=== PATIENT | male | born 1940 | race Two or more races ===

== ENCOUNTER 2021-04-14 15:39 | Inpatient (IN) | payer OTHER ==
[~2021-04-14] VITALS: Ht 185.4 cm; Wt 53.5 kg
[2021-04-14 16:54] LABS: Basophils # (auto) 0 10 ^3/uL (0-0.2); Basophils % (auto) 0.3 % (0.0-2.0); Eosinophils # (auto) 0 10 ^3/uL (0-0.8); Hematocrit 46.5 % (41.0-53.0); Hemoglobin 15.3 g/dL (13.5-17.5); Lymphocytes # (auto) 1.5 10 ^3/uL (0.4-5.4); Lymphocytes % (auto) 20.9 % (10.0-50.0); Mean Corpuscular Hemoglobin 28.1 pg (28.0-32.0); Mean Corpuscular Hgb Conc. 32.9 g/dL (32.0-36.0); Mean Corpuscular Volume 85.4 fL (80.0-100.0); Monocytes # (auto) 0.5 10 ^3/uL (0-1.3); Monocytes % (auto) 6.7 % (0.0-12.0); Neutrophils % (auto) 72.1 % (37.0-80.0); Nucleated Red Blood Cells % 0.2 %; Red Blood Cells 5.44 10^6/uL (4.5-5.90); Red Cell Distribution Width 13.6 % (11.8-14.3)
[2021-04-14 17:17] LABS: INR 1.16 (0.9-1.15); Partial Thromboplastin Time 33.3 sec (23.6-33.0)
[2021-04-14 17:20] LABS: Alanine Aminotransferase 32 U/L (16-61); Alkaline Phosphatase 54 U/L (45-117); Anion Gap 5 (5-15); Aspartate Aminotransferase 58 U/L (15-37); Blood Urea Nitrogen 23 mg/dL (7-18); Carbon Dioxide 23 mmol/L (21-32); Chloride 105 mmol/L (98-107); GFR African American 92 mL/min; GFR Non-African American 76 mL/min; Glucose 118 mg/dL (74-106); Potassium 4.4 mmol/L (3.5-5.1); Sodium 133 mmol/L (136-145)
[2021-04-14 17:21] LABS: Bilirubin, Total 1.1 mg/dL (0.2-1.0); Calcium 8.8 mg/dL (8.5-10.1); Total Protein 8.4 g/dL (6.4-8.2)
[2021-04-14] MEDS ORDERED: ENOXAPARIN SOD 100 MG/1 ML SYRINGE SC ONE (19:45)
[2021-04-14] MEDS ORDERED: ASPirin 325 MG TAB PO ONE (19:45)
[2021-04-14] MEDS ORDERED: NITROGLYCERIN 0.4 MG SL TAB SL PRN ×3 (21:15→21:30)
[2021-04-14] MEDS ORDERED: MORPHINE SULFATE INJECTION 2 MG/ML SYRG IV PRN ×4 (21:15→21:30)
[2021-04-14] MEDS ORDERED: hydrALAZINE HCL 20 MG/ML VL IV ONE (21:15)
[2021-04-14] MEDS ORDERED: METOPROLOL TARTRATE 25 MG TAB PO STA (21:25)
[2021-04-14] MEDS ORDERED: CLOPIDOGREL 300 MG TAB PO ONE (21:30)
[2021-04-14] MEDS ORDERED: ATORVASTATIN 20 MG TAB PO ONE (21:30)
[2021-04-14] MEDS ORDERED: SODIUM CHLORIDE 0.9% 1,000 ML IV SCH (21:30)
[2021-04-14] MEDS ORDERED: ONDANSETRON HCL 4 MG/2 ML VIAL IV PRN ×2 (21:30)
[2021-04-14] MEDS: ENOXAPARIN SOD 80 MG/0.8ML SYRINGE SC SCH (22:57)
[2021-04-14] MEDS ORDERED: LABETALOL HCL 5 MG/ML 4ML SYRINGE IV ONE (23:00)
[2021-04-14] MEDS: ATORVASTATIN 20 MG TAB PO SCH (23:11)
[2021-04-15 02:03] LABS: Urine Bacteria FEW /hpf (None Seen); Urine Blood 2+ /uL (Negative); Urine Hyaline Cast FEW /lpf (0 - 2); Urine Mucus FEW (None Seen); Urine Specific Gravity 1.016 (1.001-1.035); Urine WBC 185 /hpf (0 - 3); Urine WBC Clumps PRESENT /hpf (None Seen)
[2021-04-15] MEDS ORDERED: LABETALOL HCL 5 MG/ML ML 20ML VIAL IV ONE (04:00)
[2021-04-15 05:30] VITALS: BP_SYST 157; BP_SYST 158; BP_DIAS 75; BP_DIAS 84
[2021-04-15 08:07] LABS: Basophils # (auto) 0 10 ^3/uL (0-0.2); Basophils % (auto) 0.6 % (0.0-2.0); Eosinophils # (auto) 0.2 10 ^3/uL (0-0.8); Eosinophils % (auto) 3.1 % (0.0-7.0); Hematocrit 39.6 % (41.0-53.0); Hemoglobin 13.2 g/dL (13.5-17.5); Lymphocytes % (auto) 31.6 % (10.0-50.0); Mean Corpuscular Hemoglobin 32.4 pg (28.0-32.0); Mean Corpuscular Hgb Conc. 33.3 g/dL (32.0-36.0); Mean Corpuscular Volume 97.2 fL (80.0-100.0); Monocytes # (auto) 0.7 10 ^3/uL (0-1.3); Monocytes % (auto) 10.9 % (0.0-12.0); Neutrophils # (auto) 3.4 10 ^3/uL (1.6-8.6); Neutrophils % (auto) 53.8 % (37.0-80.0); Nucleated Red Blood Cells % 0.1 %; Red Blood Cells 4.08 10^6/uL (4.5-5.90); Red Cell Distribution Width 13.7 % (11.8-14.3); White Blood Cell 6.4 10^3/uL (4.4-10.8)
[2021-04-15 09:00] VITALS: BP 179/92
[2021-04-15] MEDS: ASPirin 81 mg TAB PO SCH (09:14)
[2021-04-15] MEDS: ENOXAPARIN SOD 80 MG/0.8ML SYRINGE SC SCH ×2 (09:15→22:21)
[2021-04-15] MEDS: CLOPIDOGREL BISULFATE 75 MG TAB PO SCH (09:15)
[2021-04-15] MEDS: LISINOPRIL 10 MG TAB PO SCH (09:16)
[2021-04-15] MEDS ORDERED: AMLO-483 PO (09:56)
[2021-04-15] MEDS ORDERED: ASPI-543 PO (09:56)
[2021-04-15 10:02] LABS: Alanine Aminotransferase 31 U/L (16-61); Albumin 3.3 g/dL (3.4-5.0); Alkaline Phosphatase 56 U/L (45-117); Anion Gap 6 (5-15); Aspartate Aminotransferase 36 U/L (15-37); BUN/Creatinine Ratio 16.9; Blood Urea Nitrogen 26 mg/dL (7-18); Calcium 8.3 mg/dL (8.5-10.1); Carbon Dioxide 22 mmol/L (21-32); Chloride 115 mmol/L (98-107); Cholesterol 119 mg/dL (< 200); GFR African American 56 mL/min; GFR Non-African American 46 mL/min; Glucose 83 mg/dL (74-106); HDL Cholesterol 26 mg/dL (40-59); LDL Cholesterol 79 mg/dL (< 100); Magnesium 2.2 mg/dL (1.6-2.6); Potassium 4.1 mmol/L (3.5-5.1); Sodium 143 mmol/L (136-145); Total Protein 6.1 g/dL (6.4-8.2); Triglycerides 98 mg/dL (< 150)
[2021-04-15] MEDS ORDERED: DexAMETHasone SOD PHOS 10MG/1ML VIAL INJ IV ONE (10:05)
[2021-04-15] MEDS ORDERED: ASCORBIC ACID 1,000 MG TAB PO ONE (10:05)
[2021-04-15] MEDS ORDERED: CHOLECALCIFEROL (VITD3) 2,000 UNIT CAP/TAB PO ONE (10:05)
[2021-04-15] MEDS ORDERED: FUROSEMIDE 20 MG/2 ML VIAL IV ONE (10:15)
[2021-04-15] MEDS ORDERED: DEXTROSE (50%) 50ML SYRG IV PRN (10:15)
[2021-04-15] MEDS ORDERED: REMDESIVIR PER PHARMACY 0 ML IV SCH (10:15)
[2021-04-15] MEDS ORDERED: hydrALAZINE HCL 20 MG/ML VL IV PRN (10:15)
[2021-04-15] MEDS: SODIUM CHLORIDE 0.9% 1,000 ML IV SCH (11:00)
[2021-04-15] MEDS: METOPROLOL TARTRATE 25 MG TAB PO SCH ×2 (11:30→22:22)
[2021-04-15] MEDS: InsuLIN REG 1unit/0.01ml Soln (100units/ml) SC SCH ×2 (12:00→18:09)
[2021-04-15] MEDS: ACCU-CHEK COMFORT CURVE STRIP VI SCH ×2 (12:15→18:10)
[2021-04-15 12:43] LABS: Lactic Acid w/Reflex 2.7 mmol/L (0.4-2.0)
[2021-04-15 12:50] VITALS: BP 138/63
[2021-04-15 13:00] VITALS: BP 138/63
[2021-04-15] MEDS ORDERED: REMDESIVIR 200 MG in NS 210ml LOADING DOSE ADULT IV ONE (15:00)
[2021-04-15 16:59] VITALS: BP 128/77
[2021-04-15] MEDS: BUDESONIDE (INHALATION) 180 MCG IH IN SCH (20:01)
[2021-04-15] MEDS: ALBUTEROL SULF HFA 90MCG INH 200DOSE IN PRN (20:01)
[2021-04-15 22:00] VITALS: BP 128/70
[2021-04-15] MEDS: ATORVASTATIN 20 MG TAB PO SCH (22:20)
[2021-04-15] MEDS: DOXYCYCLINE 100MG/250ML 250 ML IV SCH (22:21)
[2021-04-16 05:00] VITALS: BP 126/55
[2021-04-16] MEDS: SODIUM CHLORIDE 0.9% 1,000 ML IV SCH (06:36)
[2021-04-16 06:41] LABS: Albumin 2.4 g/dL (3.4-5.0); Calcium 8.3 mg/dL (8.5-10.1); Potassium 3.2 mmol/L (3.5-5.1)
[2021-04-16 06:44] LABS: BUN/Creatinine Ratio 38.8; Bilirubin, Total 0.9 mg/dL (0.2-1.0); Total Protein 6.9 g/dL (6.4-8.2)
[2021-04-16] MEDS: BUDESONIDE (INHALATION) 180 MCG IH IN SCH ×2 (07:37→20:16)
[2021-04-16 09:00] VITALS: BP 114/56
[2021-04-16] MEDS: DOXYCYCLINE 100MG/250ML 250 ML IV SCH ×2 (09:44→22:15)
[2021-04-16] MEDS: DexAMETHasone SOD PHOS 10MG/1ML VIAL INJ IV SCH (09:44)
[2021-04-16] MEDS: METOPROLOL TARTRATE 25 MG TAB PO SCH ×2 (09:45→22:18)
[2021-04-16] MEDS: ASCORBIC ACID 1,000 MG TAB PO SCH (09:45)
[2021-04-16] MEDS: CHOLECALCIFEROL (VITD3) 2,000 UNIT CAP/TAB PO SCH (09:45)
[2021-04-16] MEDS: CLOPIDOGREL BISULFATE 75 MG TAB PO SCH (09:45)
[2021-04-16] MEDS: ASPirin 81 mg TAB PO SCH (09:45)
[2021-04-16] MEDS: ENOXAPARIN SOD 80 MG/0.8ML SYRINGE SC SCH (09:46)
[2021-04-16] MEDS: LISINOPRIL 10 MG TAB PO SCH (09:46)
[2021-04-16] MEDS: REMDESIVIR 100mg 100 MG in SODIUM CHL 0.9% 230 ML IV SCH (15:15)
[2021-04-16] MEDS ORDERED: FUROSEMIDE 20 MG/2 ML VIAL IV ONE (15:15)
[2021-04-16] MEDS ORDERED: ERGOCALCIFEROL 50,000 UNIT(1.25MG) CAP PO ONE (15:15)
[2021-04-16] MEDS ORDERED: POTASSIUM EFFERVESENT TAB 25 MEQ PO ONE (15:15)
[2021-04-16 17:00] VITALS: BP 143/85
[2021-04-16] MEDS: ALBUTEROL SULF HFA 90MCG INH 200DOSE IN PRN (20:17)
[2021-04-16 22:00] VITALS: BP 101/56
[2021-04-16] MEDS: ATORVASTATIN 20 MG TAB PO SCH (22:15)
[2021-04-16] MEDS: ENOXAPARIN SOD 40 MG/0.4 ML SYRINGE SC SCH (22:18)
[2021-04-17 05:00] VITALS: BP 139/72
[2021-04-17 07:01] LABS: Basophils # (auto) 0 10 ^3/uL (0-0.2); Basophils % (auto) 0.1 % (0.0-2.0); Eosinophils # (auto) 0 10 ^3/uL (0-0.8); Hematocrit 42.7 % (41.0-53.0); Lymphocytes # (auto) 1.2 10 ^3/uL (0.4-5.4); Lymphocytes % (auto) 11.9 % (10.0-50.0); Mean Corpuscular Hemoglobin 27.4 pg (28.0-32.0); Mean Corpuscular Hgb Conc. 32.6 g/dL (32.0-36.0); Mean Corpuscular Volume 83.9 fL (80.0-100.0); Monocytes # (auto) 0.3 10 ^3/uL (0-1.3); Monocytes % (auto) 3.3 % (0.0-12.0); Neutrophils # (auto) 8.3 10 ^3/uL (1.6-8.6); Neutrophils % (auto) 84.7 % (37.0-80.0); Nucleated Red Blood Cells % 0.1 %; Red Cell Distribution Width 13.4 % (11.8-14.3); White Blood Cell 9.8 10^3/uL (4.4-10.8)
[2021-04-17] MEDS: BUDESONIDE (INHALATION) 180 MCG IH IN SCH ×2 (07:11→19:34)
[2021-04-17 07:18] LABS: Albumin 2.5 g/dL (3.4-5.0); BUN/Creatinine Ratio 47.8; Calcium 8.3 mg/dL (8.5-10.1); Potassium 3.3 mmol/L (3.5-5.1)
[2021-04-17 07:21] LABS: INR 1.27 (0.9-1.15)
[2021-04-17 07:23] LABS: Bilirubin, Total 0.7 mg/dL (0.2-1.0); Total Protein 6.7 g/dL (6.4-8.2)
[2021-04-17 08:00] VITALS: BP 124/59
[2021-04-17] MEDS ORDERED: FUROSEMIDE 20 MG/2 ML VIAL IV SCH (10:00)
[2021-04-17] MEDS: ASPirin 81 mg TAB PO SCH (10:27)
[2021-04-17] MEDS: DexAMETHasone SOD PHOS 10MG/1ML VIAL INJ IV SCH (10:27)
[2021-04-17] MEDS: METOPROLOL TARTRATE 25 MG TAB PO SCH ×2 (10:27→21:48)
[2021-04-17] MEDS: CLOPIDOGREL BISULFATE 75 MG TAB PO SCH (10:28)
[2021-04-17] MEDS: ASCORBIC ACID 1,000 MG TAB PO SCH (10:28)
[2021-04-17] MEDS: ENOXAPARIN SOD 40 MG/0.4 ML SYRINGE SC SCH ×2 (10:28→21:49)
[2021-04-17] MEDS: CHOLECALCIFEROL (VITD3) 2,000 UNIT CAP/TAB PO SCH (10:28)
[2021-04-17] MEDS: DOXYCYCLINE 100MG/250ML 250 ML IV SCH ×2 (11:10→21:47)
[2021-04-17 12:00] VITALS: BP 154/66
[2021-04-17] MEDS: ENSURE CLEAR Apple 8oz Carton PO SCH ×2 (12:30→18:30)
[2021-04-17] MEDS ORDERED: POTASSIUM EFFERVESENT TAB 25 MEQ PO ONE (12:45)
[2021-04-17] MEDS: REMDESIVIR 100mg 100 MG in SODIUM CHL 0.9% 230 ML IV SCH (15:21)
[2021-04-17 16:00] VITALS: BP 145/73
[2021-04-17] MEDS: ATORVASTATIN 20 MG TAB PO SCH (21:48)
[2021-04-17] MEDS: ACETAMINOPHEN 325 MG TAB PO PRN (21:50)
[2021-04-17 22:00] VITALS: BP 125/71
[2021-04-17] MEDS: ALBUTEROL SULF HFA 90MCG INH 200DOSE IN PRN (22:47)
[2021-04-18 05:00] VITALS: BP 140/62
[2021-04-18] MEDS: ALBUTEROL SULF HFA 90MCG INH 200DOSE IN PRN ×2 (06:56→19:34)
[2021-04-18] MEDS: BUDESONIDE (INHALATION) 180 MCG IH IN SCH ×2 (06:57→19:34)
[2021-04-18 08:00] VITALS: BP 124/68
[2021-04-18 09:00] VITALS: BP 135/72
[2021-04-18] MEDS: ASPirin 81 mg TAB PO SCH (09:18)
[2021-04-18] MEDS: ENSURE CLEAR Apple 8oz Carton PO SCH ×2 (09:18→12:00)
[2021-04-18] MEDS: DexAMETHasone SOD PHOS 10MG/1ML VIAL INJ IV SCH (09:18)
[2021-04-18] MEDS: DOXYCYCLINE 100MG/250ML 250 ML IV SCH ×2 (09:18→21:29)
[2021-04-18] MEDS: CHOLECALCIFEROL (VITD3) 2,000 UNIT CAP/TAB PO SCH (09:19)
[2021-04-18] MEDS: ASCORBIC ACID 1,000 MG TAB PO SCH (09:19)
[2021-04-18] MEDS: ENOXAPARIN SOD 40 MG/0.4 ML SYRINGE SC SCH ×2 (09:19→21:31)
[2021-04-18] MEDS: METOPROLOL TARTRATE 25 MG TAB PO SCH ×2 (09:19→21:30)
[2021-04-18 13:00] VITALS: BP 134/75
[2021-04-18] MEDS: REMDESIVIR 100mg 100 MG in SODIUM CHL 0.9% 230 ML IV SCH (16:36)
[2021-04-18 17:00] VITALS: BP 140/79
[2021-04-18] MEDS: ACETAMINOPHEN 325 MG TAB PO PRN (19:52)
[2021-04-18] MEDS: ATORVASTATIN 20 MG TAB PO SCH (21:30)
[2021-04-18 22:00] VITALS: BP 146/58
[2021-04-19] VITALS (7 sets, daily range): BP systolic 144–156; BP diastolic 53–90
[2021-04-19] MEDS: ENSURE CLEAR Apple 8oz Carton PO SCH ×4 (09:28→18:00)
[2021-04-19] MEDS: DexAMETHasone SOD PHOS 10MG/1ML VIAL INJ IV SCH (09:29)
[2021-04-19] MEDS: ASPirin 81 mg TAB PO SCH (09:29)
[2021-04-19] MEDS: DOXYCYCLINE 100MG/250ML 250 ML IV SCH ×2 (09:29→22:06)
[2021-04-19] MEDS: CHOLECALCIFEROL (VITD3) 2,000 UNIT CAP/TAB PO SCH (09:30)
[2021-04-19] MEDS: ASCORBIC ACID 1,000 MG TAB PO SCH (09:30)
[2021-04-19] MEDS: ENOXAPARIN SOD 40 MG/0.4 ML SYRINGE SC SCH ×2 (09:30→22:08)
[2021-04-19] MEDS: METOPROLOL TARTRATE 25 MG TAB PO SCH ×2 (09:31→22:07)
[2021-04-19 13:30] LABS: Basophils # (auto) 0.3 10 ^3/uL (0-0.2); Basophils % (auto) 4.9 % (0.0-2.0); Eosinophils # (auto) 0 10 ^3/uL (0-0.8); Eosinophils % (auto) 0.4 % (0.0-7.0); Hematocrit 37.5 % (41.0-53.0); Hemoglobin 12.6 g/dL (13.5-17.5); Lymphocytes # (auto) 0.6 10 ^3/uL (0.4-5.4); Mean Corpuscular Hgb Conc. 33.7 g/dL (32.0-36.0); Monocytes # (auto) 0.1 10 ^3/uL (0-1.3); Monocytes % (auto) 1.9 % (0.0-12.0); Neutrophils # (auto) 4.8 10 ^3/uL (1.6-8.6); Neutrophils % (auto) 82.8 % (37.0-80.0); Nucleated Red Blood Cells % 0.1 %; Red Blood Cells 4.22 10^6/uL (4.5-5.90); Red Cell Distribution Width 13.4 % (11.8-14.3); White Blood Cell 5.8 10^3/uL (4.4-10.8)
[2021-04-19 13:49] LABS: Albumin 2.4 g/dL (3.4-5.0); Calcium 8.6 mg/dL (8.5-10.1)
[2021-04-19 13:54] LABS: BUN/Creatinine Ratio 30.1; Bilirubin, Total 0.5 mg/dL (0.2-1.0); Potassium 3.4 mmol/L (3.5-5.1); Total Protein 6.1 g/dL (6.4-8.2)
[2021-04-19] MEDS: REMDESIVIR 100mg 100 MG in SODIUM CHL 0.9% 230 ML IV SCH (14:49)
[2021-04-19] MEDS: ALBUTEROL SULF HFA 90MCG INH 200DOSE IN PRN ×2 (15:32→20:56)
[2021-04-19] MEDS: BUDESONIDE (INHALATION) 180 MCG IH IN SCH ×2 (15:32→20:56)
[2021-04-19] MEDS: ATORVASTATIN 20 MG TAB PO SCH (22:07)
[2021-04-20 05:00] VITALS: BP 160/67
[2021-04-20] MEDS ORDERED: hydrALAZINE HCL 20 MG/ML VL ONE (05:23)
[2021-04-20] MEDS: ALBUTEROL SULF HFA 90MCG INH 200DOSE IN PRN ×2 (07:45→19:25)
[2021-04-20] MEDS: BUDESONIDE (INHALATION) 180 MCG IH IN SCH ×2 (07:45→19:25)
[2021-04-20 09:00] VITALS: BP 149/76
[2021-04-20] MEDS: DexAMETHasone SOD PHOS 10MG/1ML VIAL INJ IV SCH (09:21)
[2021-04-20] MEDS: ENOXAPARIN SOD 40 MG/0.4 ML SYRINGE SC SCH ×2 (09:21→21:38)
[2021-04-20] MEDS: DOXYCYCLINE 100MG/250ML 250 ML IV SCH (09:21)
[2021-04-20] MEDS: ASCORBIC ACID 1,000 MG TAB PO SCH (09:22)
[2021-04-20] MEDS: METOPROLOL TARTRATE 25 MG TAB PO SCH ×2 (09:22→21:38)
[2021-04-20] MEDS: ASPirin 81 mg TAB PO SCH (09:22)
[2021-04-20] MEDS: CHOLECALCIFEROL (VITD3) 2,000 UNIT CAP/TAB PO SCH (09:22)
[2021-04-20] MEDS: ENSURE CLEAR Apple 8oz Carton PO SCH ×3 (09:23→18:00)
[2021-04-20 11:01] LABS: Basophils # (auto) 0 10 ^3/uL (0-0.2); Basophils % (auto) 0.5 % (0.0-2.0); Eosinophils # (auto) 0 10 ^3/uL (0-0.8); Eosinophils % (auto) 0.3 % (0.0-7.0); Hematocrit 36.4 % (41.0-53.0); Hemoglobin 12.5 g/dL (13.5-17.5); Lymphocytes # (auto) 1.3 10 ^3/uL (0.4-5.4); Lymphocytes % (auto) 23.2 % (10.0-50.0); Mean Corpuscular Hemoglobin 32.4 pg (28.0-32.0); Mean Corpuscular Hgb Conc. 34.3 g/dL (32.0-36.0); Mean Corpuscular Volume 94.6 fL (80.0-100.0); Monocytes # (auto) 0.4 10 ^3/uL (0-1.3); Monocytes % (auto) 7.4 % (0.0-12.0); Neutrophils # (auto) 3.7 10 ^3/uL (1.6-8.6); Neutrophils % (auto) 68.6 % (37.0-80.0); Nucleated Red Blood Cells % 0.1 %; Red Blood Cells 3.85 10^6/uL (4.5-5.90); Red Cell Distribution Width 13.6 % (11.8-14.3); White Blood Cell 5.4 10^3/uL (4.4-10.8)
[2021-04-20 11:06] LABS: Albumin 2.3 g/dL (3.4-5.0); BUN/Creatinine Ratio 34.4; Calcium 8.5 mg/dL (8.5-10.1); Potassium 3.9 mmol/L (3.5-5.1)
[2021-04-20 11:09] LABS: Bilirubin, Total 0.5 mg/dL (0.2-1.0); Total Protein 5.9 g/dL (6.4-8.2)
[2021-04-20] MEDS ORDERED: ALBUAER3 IN (13:09)
[2021-04-20] MEDS ORDERED: FAMO20TA10 PO (13:09)
[2021-04-20] MEDS ORDERED: MET25T PO (13:09)
[2021-04-20] MEDS ORDERED: DEX4T PO (13:09)
[2021-04-20] MEDS ORDERED: AML5T PO (13:09)
[2021-04-20] MEDS ORDERED: ZINC220T6 PO (13:09)
[2021-04-20] MEDS ORDERED: ASCO10003 PO (13:09)
[2021-04-20 13:29] VITALS: BP 136/73
[2021-04-20 17:00] VITALS: BP 154/76
[2021-04-20] MEDS: ATORVASTATIN 20 MG TAB PO SCH (21:37)
[2021-04-20 22:00] VITALS: BP 150/78
[2021-04-21 05:00] VITALS: BP 149/78
[2021-04-21] MEDS: BUDESONIDE (INHALATION) 180 MCG IH IN SCH (05:34)
[2021-04-21] MEDS: ALBUTEROL SULF HFA 90MCG INH 200DOSE IN PRN (05:34)
[2021-04-21] MEDS: ENSURE CLEAR Apple 8oz Carton PO SCH ×3 (08:00→17:58)
[2021-04-21] MEDS: DexAMETHasone SOD PHOS 10MG/1ML VIAL INJ IV SCH (08:57)
[2021-04-21] MEDS: ASPirin 81 mg TAB PO SCH (08:58)
[2021-04-21] MEDS: CHOLECALCIFEROL (VITD3) 2,000 UNIT CAP/TAB PO SCH (08:58)
[2021-04-21] MEDS: METOPROLOL TARTRATE 25 MG TAB PO SCH (08:58)
[2021-04-21] MEDS: ENOXAPARIN SOD 40 MG/0.4 ML SYRINGE SC SCH (08:58)
[2021-04-21] MEDS: ASCORBIC ACID 1,000 MG TAB PO SCH (08:58)
[2021-04-21 11:05] VITALS: BP 149/74
[2021-04-21] MEDS ORDERED: LISI20TA28 PO (14:48)
[2021-04-21 16:48] VITALS: BP 140/67
== END 2021-04-21 18:00 | disposition home health service (06) | DRG 177 ==
LOC: ER 15:39 → TELE 21:19 → TELE-EAST 04-15 05:51
PROVIDERS: ADMIT Internal Medicine; ATTEND Internal Medicine
PROC: XW033E5 Introduction of Remdesivir Anti-infective into Peripheral Vein, Percutaneous Approach, New Technology Group 5 (ICD-10-PCS; principal; 2021-04-15)
DX: U07.1 COVID-19 (principal); J12.82 Pneumonia due to coronavirus disease 2019; J96.00 Acute respiratory failure, unspecified whether with hypoxia or hypercapnia; I21.A1 Myocardial infarction type 2; N17.0 Acute kidney failure with tubular necrosis; I50.43 Acute on chronic combined systolic (congestive) and diastolic (congestive) heart failure; R73.9 Hyperglycemia, unspecified; E87.6 Hypokalemia; E55.9 Vitamin D deficiency, unspecified; F17.210 Nicotine dependence, cigarettes, uncomplicated; I11.0 Hypertensive heart disease with heart failure; D89.839 Cytokine release syndrome, grade unspecified; Z23 Encounter for immunization; Z91.19 Patient's noncompliance with other medical treatment and regimen; Z88.0 Allergy status to penicillin
CPT/HCPCS: 36415; 70450; 71045; 74176; 80053; 80061; 81001; 82306; 82728; 82962; 83036; 83605; 83615; 83735; 83880; 84132; 84484; 85025; 85379; 85610; 85730; 86141; 87086; 87426; 93005; 93306; 93970; 94640; 96361; 96372; 96374; 97163; G0378; J1100; J1815; J3490